=== PATIENT | male | born 1965 | race African-American/Black ===

== ENCOUNTER 2017-04-20 16:45 | Emergency (ER) | payer BC ==
[~2017-04-20] VITALS: Ht 170.2 cm; Wt 69.8 kg
--- NOTE | ~2017-04-20 | CR63 ---
[facility] A Service of [facility] RADIOLOGY TEXT RESULTS PATIENT: MOLLY MCKEON LOCATION: [facility] : 61 UNIT #: [id number] AGE: [address]: Garth Torres DO SEX: M ORDER DR: [id number] [facility] [address] [place], [place] [address] [id number] E MR#: [id number] Acc #: [id number] NAME: MOLLY MCKEON : 1965 SEX: M STUDY DATE/TIME: 04/20/2017 20:21 UNIT: [facility] ROOM: STUDY DESCRIPTION: CR Chest 2 View Attending Physician: Garth Torres D.O. Ordering Physician: Garth Torres D.O. Primary Care Physician: Primary Care Physician No MEDICAL IMAGING REPORT This report is preliminary unless electronic signature is present EXAM Chest x-ray, 04/20/2016 INDICATION Shortness of air with activity, hypertension that started today. COMPARISON None. FINDINGS PA and lateral examination of the chest upright shows a good expansion of the parenchyma with a normal distribution of the pulmonary vascularity. There is no indication of congestion, effusion, infiltrate, tumor, or nodular density. The pleural reflections and diaphragmatic contours are normal. The cardiac silhouette and mediastinal anatomy is within normal limits. IMPRESSION Normal chest. Dictated by... Checo Harry Jr., M.D. THIS IS AN ELECTRONICALLY VERIFIED REPORT Checo Harry Jr., M.D. at 04/21/2017 10:01 AM JOSE/mark TD: 04/20/2017 22:41 JOB #: [id number] [facility] A Service [facility] RADIOLOGY TEXT RESULTS PATIENT: MOLLY MCKEON LOCATION: [facility] : 61 UNIT #: [id number] AGE: [address]: Garth Torres DO SEX: M ORDER DR: MEDICAL IMAGING REPORT Page 1 of 1 COPY
--- NOTE | ~2017-04-20 | CT4 ---
[facility] A Service of [facility] RADIOLOGY TEXT RESULTS PATIENT: MOLLY MCKEON LOCATION: [facility] : 61 UNIT #: [id number] AGE: [address]: Garth Torres DO SEX: M ORDER DR: [id number] [facility] [address] [place], [place] [address] [id number] E MR#: [id number] Acc #: [id number] NAME: MOLLY MCKEON : 1965 SEX: M STUDY DATE/TIME: 04/20/2017 22:07 UNIT: [facility] ROOM: STUDY DESCRIPTION: CT Abd and Pelv Wo Cont Attending Physician: Garth Torres D.O. Ordering Physician: Garth Torres D.O. Primary Care Physician: No Primary Care Physician MEDICAL IMAGING REPORT This report is preliminary unless electronic signature is present EXAM CT abdomen and pelvis, 04/20 HISTORY Left lower quadrant abdominal pain and back pain that started today. TECHNIQUE Axial noncontrast images were obtained through the abdomen and pelvis. Multiplanar reformats were obtained. This CT exam was performed with one or more of the following radiation dose reduction techniques: automatic exposure control, adjustment of mA and/or kV according to patient size, and iterative reconstruction. COMPARISON No comparison. FINDINGS ABDOMEN: Lung bases are clear except for some mild dependent atelectasis in the lower lobes. Gallbladder is unremarkable. No renal or ureteral stones. No hydronephrosis. The unenhanced solid organs are normal. Unopacified GI tract grossly normal. No free fluid. PELVIS: There are no lower ureteral stones. The bladder is normal. No free fluid. Unopacified GI tract including the appendix is normal as well. No fracture or malalignment seen in the lumbar spine. No significant disc bulging or herniation seen. IMPRESSION 1. No acute findings in the abdomen or pelvis. 2. No renal or ureteral stones. No hydronephrosis. 3. Normal unopacified GI tract including the appendix. [facility] A Service of [facility] RADIOLOGY TEXT RESULTS PATIENT: MOLLY MCKEON LOCATION: [facility] : 61 UNIT #: [id number] AGE: [address]: Garth Torres DO SEX: M ORDER DR: 4. No fracture or malalignment in the spine. No significant disc bulging or herniation. Dictated by... Checo Harry Jr., M.D. THIS IS AN ELECTRONICALLY VERIFIED REPORT Checo Harry Jr., M.D. at 04/21/2017 10:02 AM JOSE/munir TD: 04/20/2017 23:38 JOB #: [id number] MEDICAL IMAGING REPORT Page 1 of 1 COPY
--- NOTE | ~2017-04-20 | EKG ---
PATIENT: MOLLY MCKEON UNIT #: [id number] Ventricular Rate: 62 BPM Atrial Rate: 62 BPM P-R Interval: 152 ms QRS Duration: 80 ms Q-T Interval: 422 ms QTC Calculation(Bezet): 428 ms P Fr[place]: 74 degrees Calculated R Frisco: -4 degrees Calculated T Fr[place]: 26 degrees Diagnosis Line: Normal sinus rhythm Diagnosis Line: Minimal voltage criteria for LVH, may be normal Diagnosis Line: variant Diagnosis Line: Nonspecific T wave abnormality Diagnosis Line: Abnormal ECG Diagnosis Line: No previous ECGs available Diagnosis Line: Confirmed by POLO MAY MD ([id number]) on Diagnosis Line: 04/21/2017 9:45:46 AM INTERPRETING MD: YADIRA HERNANDEZ
--- NOTE | ~2017-04-20 | CR181 ---
[facility] A Service of [facility] RADIOLOGY TEXT RESULTS PATIENT: MOLLY MCKEON LOCATION: [facility] : 61 UNIT #: [id number] AGE: [address]: Garth Torres DO SEX: M ORDER DR: [id number] [facility] [address] [place], [place] [address] [id number] E MR#: [id number] Acc #: [id number] NAME: MOLLY MCKEON : 1965 SEX: M STUDY DATE/TIME: 04/20/2017 20:27 UNIT: [facility] ROOM: STUDY DESCRIPTION: CR Lumbar Spine 2 or 3 Views Attending Physician: Garth Torres D.O. Ordering Physician: Garth Torres D.O. Primary Care Physician: Primary Care Physician No MEDICAL IMAGING REPORT This report is preliminary unless electronic signature is present EXAM Lumbar spine, 04/20/2017 INDICATION Low back pain started today. COMPARISON 10/24/2013 FINDINGS Three views of the lumbar spine were obtained. There is no fracture or subluxation identified. Vertebral body heights and disc spaces are normal. There is some very mild degenerative endplate spurring at multiple levels. IMPRESSION Minimal degenerative endplate disease, otherwise negative lumbar spine. Dictated by... Checo Harry Jr., M.D. THIS IS AN ELECTRONICALLY VERIFIED REPORT Checo Harry Jr., M.D. at 04/21/2017 10:01 AM JOSE/mark TD: 04/20/2017 22:43 JOB #: [id number] MEDICAL IMAGING REPORT Page 1 of 1 COPY
[2017-04-20 18:17] LABS: BASOPHIL% 0.3 % (0-2.5); EOSINOPHIL# 0.1 X10e3 (0-0.7); EOSINOPHIL% 0.7 % (0.0-7.0); HEMOGLOBIN 13.5 gm/dL (13.0-16.0); LYMPHOCYTE# 2.3 X10e3 (1.0-3.5); LYMPHOCYTE% 32.4 % (17.0-45.0); MEAN CELL VOLUME 79.1 FL (83-96); MEAN CORPUSCULAR HEMOGLOBIN 26.6 PG (28-34); MEAN CORPUSCULAR HGB CONC 33.6 g/dL (30-36); MONOCYTE# 0.6 X10e3 (0-1.0); MONOCYTE% 8.7 % (3.0-12.0); NEUTROPHIL# 4.2 X10e3 (1.5-7.1); NEUTROPHIL% 57.9 % (40-75); PLATELET COUNT 219 X10e3 (140-420); RED BLOOD COUNT 5.06 X10e (3.90-5.60); RED CELL DISTRIBUTION WIDTH 13.8 % (11.0-15.5); WHITE BLOOD COUNT 7.3 X10e3 (4.0-10.5)
[2017-04-20 18:20] LABS: DIFF IND NO
[2017-04-20 18:59] LABS: ALBUMIN SERUM 4.1 g/dL (3.5-5.0); ALKALINE PHOSPHATASE 107 U/L (32-92); ALT (SGPT) 51 U/L (10-40); AST (SGOT) 23 U/L (10-42); BILIRUBIN, DIRECT 0.1 mg/dL (0.0-0.2); BILIRUBIN,TOTAL <0.1 mg/dL (0.2-2.0); BLOOD UREA NITROGEN 19 mg/dL (9-23); BUN/CREATININE RATIO 14.61; CALCIUM SERUM 8.9 mg/dL (8.4-10.2); CARBON DIOXIDE 25 mmol/L (22-31); CHLORIDE 104 mmol/L (100-111); CREATININE SERUM 1.3 mg/dL (0.6-1.4); GLOM FILT RATE Estimated 72.2 mL/min (>60); GLUCOSE FASTING 88 mg/dL (70-110); POTASSIUM 3.5 mmol/L (3.5-5.1); PROTEIN TOTAL SERUM 8.1 g/dL (6.0-8.3); SODIUM 138 mmol/L (135-145)
[2017-04-20 20:06] LABS: POC - CKMB 6.5 ng/mL (0.0-7.9); POC - TROPONIN <0.05 ng/mL (<=0.05)
[2017-04-20 21:04] LABS: POC - CKMB <1.0 ng/mL (0.0-7.9); POC - TROPONIN <0.05 ng/mL (<=0.05)
[2017-04-20 22:35] LABS: URINE SOURCE CLEAN CATCH
[2017-04-20 22:46] LABS: URINE APPEARANCE CLEAR; URINE BILIRUBIN NEG (NEG); URINE BLOOD NEG (NEG); URINE COLOR YELLOW; URINE GLUCOSE NEG (NEG); URINE KETONE NEG (NEG); URINE LEUKOCYTE ESTERASE NEG (NEG); URINE NITRATE NEG (NEG); URINE PROTEIN NEG (NEG); URINE SPECIFIC GRAVITY 1.014 (1.003-1.035); URINE UROBILINOGEN 0.2 MG/DL (NEG)
[2017-04-20 22:52] LABS: CULTURE INDICATED? NO
== END 2017-04-20 22:53 | disposition home or self-care (01) ==
LOC: CED 16:45
PROVIDERS: Emergency Medicine
DX: I10 Essential (primary) hypertension (principal); S39.92XA Unspecified injury of lower back, initial encounter; X58.XXXA Exposure to other specified factors, initial encounter
CPT/HCPCS: 36415; 71020; 72100; 74176; 80048; 80076; 81003; 82553; 84484; 85025; 93005; 96374; 99284; J1885